=== PATIENT | male | born 1995 | race Caucasian/White ===

== ENCOUNTER → 2022-06-16 | Outpatient (CLI) | payer OTHER | LOC: M PLALAB 14:37 | PROVIDERS: ATTEND Internal Medicine Hematology | DX: I26.94 Multiple subsegmental thrombotic pulmonary emboli without acute cor pulmonale (principal) | CPT/HCPCS: 36415; 81240; 83090; 85240; 85300; 85303; 85306; 85379; 85598; G0463 ==

== ENCOUNTER → 2022-06-23 | Outpatient (CLI) | payer OTHER | LOC: M CARPUL 14:04 | PROVIDERS: ATTEND Internal Medicine Pulmonary Disease | DX: R06.02 Shortness of breath (principal) ==

== ENCOUNTER 2022-10-11 11:29 | Emergency (ER) | payer OTHER ==
[~2022-10-11] VITALS: Ht 182.9 cm; Wt 128.1 kg
[2022-10-11] MEDS ORDERED: AMOX500T (12:01)
[2022-10-11] MEDS ORDERED: ADVA115A (12:01)
[2022-10-11] MEDS ORDERED: PROA1AER2 (12:01)
[2022-10-11 12:30] LABS: BASO % 0.5 % (0.0-1.0); EOS % 0.6 % (0.0-3.0); HEMATOCRIT 44.5 % (42.0-52.0); HEMOGLOBIN 14.5 g/dl (13.5-17.5); LYMPH # 2.4 10^3/uL (1.5-5.0); LYMPH % 37.8 % (24.0-44.0); MEAN CORPUSCULAR HEMOGLOBIN 29.1 pg (27.0-33.0); MEAN CORPUSCULAR HGB CONC 32.6 g/dl (32.0-36.5); MEAN CORPUSCULAR VOLUME 89.2 fl (80.0-96.0); MONO # 0.6 10^3/uL (0.0-0.8); MONO % 10.2 % (2.0-8.0); NEUTROPHILS # 3.2 10^3/uL (1.5-8.5); NEUTROPHILS % 50.3 % (36.0-66.0); PLATELET COUNT, AUTOMATED 216 10^3/uL (150-450); RED BLOOD COUNT 4.99 10^6/uL (4.30-6.10); WHITE BLOOD COUNT 6.3 10^3/uL (4.0-10.0)
[2022-10-11 13:01] LABS: BLOOD UREA NITROGEN 18 MG/DL (9-23); CARBON DIOXIDE LEVEL 28 MMOL/L (20-31); CHLORIDE LEVEL 104 MMOL/L (98-107); GLOMERULAR FILTRATION RATE > 60.0 (>60); GLUCOSE, FASTING 99 MG/DL (60-100); POTASSIUM SERUM 4.8 MMOL/L (3.5-5.1); SODIUM LEVEL 138 MMOL/L (136-145)
[2022-10-11 16:30] VITALS: BP 131/73
== END 2022-10-11 17:11 | disposition home or self-care (01) ==
LOC: M ED 11:29
DX: K62.5 Hemorrhage of anus and rectum (principal); Z79.51 Long term (current) use of inhaled steroids

== ENCOUNTER 2023-05-18 11:00 | Emergency (ER) | payer OTHER ==
[~2023-05-18] VITALS: Ht 182.9 cm; Wt 137.2 kg
[~2023-05-18 11:00] MED LIST: ADVA115A; AMOX500T; PROA1AER2
[2023-05-18] MEDS ORDERED: ACETAMINOPHEN 500 MG TAB PO ONE (13:30)
[2023-05-18] MEDS ORDERED: REFR0.5D8 OP (14:21)
[2023-05-18 14:39] VITALS: BP 160/79; TEMP 97.4; O2SAT 100
== END 2023-05-18 14:42 | disposition home or self-care (01) ==
LOC: M ED 11:00
DX: T52.0X1A Toxic effect of petroleum products, accidental (unintentional), initial encounter (principal); J45.909 Unspecified asthma, uncomplicated; Z79.52 Long term (current) use of systemic steroids; Z79.899 Other long term (current) drug therapy